=== PATIENT | female | born 1950 | race Caucasian/White ===

== ENCOUNTER → 2021-11-04 | Outpatient (CLI) | payer MEDICARE, OTHER | LOC: M.MRI 08:13 | PROVIDERS: ATTEND Orthopaedic Surgery | DX: S83.281A Other tear of lateral meniscus, current injury, right knee, initial encounter (principal); M17.11 Unilateral primary osteoarthritis, right knee; M71.21 Synovial cyst of popliteal space [Baker], right knee; M25.461 Effusion, right knee; X58.XXXA Exposure to other specified factors, initial encounter; Y93.89 Activity, other specified; Y92.89 Other specified places as the place of occurrence of the external cause; Y99.8 Other external cause status ==

== ENCOUNTER → 2021-11-19 | Outpatient (CLI) | payer MEDICARE, OTHER ==
[~2021-11-19] MED LIST: ACETAMINOPHEN500 M1 PO; CENTRUM SILVER1 EAC6 PO; FLEXERIL PO; LOSARTAN-HCTZ1 EAC3 PO; MELOXICAM15 MG PO; NORVASC10 MG PO; PROPRANOLOL 4040 M1 PO; PROTONIX40 M4 PO
[2021-11-19 10:07] LABS: ABSOLUTE BASOPHILS 0.1 thou/uL (0.0-0.2); ABSOLUTE EOSINOPHILS 0.2 thou/uL (0.0-0.7); ABSOLUTE MONOCYTES 0.8 thou/uL (0.0-1.2); ABSOLUTE NEUTROPHILS 7.4 thou/uL (1.6-8.1); EOSINOPHILS 2.2 %; HEMATOCRIT 37.9 % (37.0-47.0); LYMPHOCYTES 19.2 %; MCH 29.7 pg (26.0-34.0); MCHC 34.2 g/dL (28.0-37.0); MONOCYTES 7.4 %; MPV 7.5 fl. (7.2-11.1); NUCLEATED RBCS 0 /100WBC; PLATELET COUNT* 338 thou/uL (150-400); POLYS 70.2 %; RBC 4.36 mil/uL (4.20-5.00); RDW-CV 13.4 % (10.5-14.5); WBC 10.5 thou/uL (4.0-11.0)
[2021-11-19 10:18] LABS: URINE BILIRUBIN NEGATIVE (Negative); URINE BLOOD NEGATIVE (Negative); URINE CLARITY CLEAR; URINE COLOR YELLOW; URINE GLUCOSE-RANDOM NEGATIVE (Negative); URINE KETONES NEGATIVE (Negative); URINE LEUKOCYTES-REFLEX 1+ (Negative); URINE NITRITE-REFLEX NEGATIVE (Negative); URINE PROTEIN NEGATIVE (Negative); URINE UROBILINOGEN 0.2 E.U./dl (0.2-1.0)
[2021-11-19 10:20] LABS: ALBUMIN 3.9 g/dL (3.4-5.0); CALCIUM 9.9 mg/dL (8.5-10.1); CREATININE 1.3 mg/dL (0.6-1.3); POTASSIUM 4.9 mmol/L (3.5-5.1); TOTAL BILIRUBIN 0.3 mg/dL (<0.1-1.0); TOTAL PROTEIN 7.9 g/dL (6.4-8.2)
[2021-11-19 10:34] LABS: PROTIME 9.9 Seconds (9.20-11.50)
[2021-11-19 10:39] LABS: BACTERIA-REFLEX 1-9 Few /HPF (None Seen); CASTS None Seen /LPF (None Seen); CRYSTALS None Seen /LPF (None Seen); SQUAMOUS 4-10 Moderate /LPF (0-3); URINE RBC 0-2 Rare /HPF (0-2); URINE WBC-REFLEX 6-15 Few /HPF (0-5)
--- NOTE | 2021-11-19 14:02 | EKG ---
[place] [address] ELECTROCARDIOGRAM REPORT Name: RODRIGESANEESH Room: [facility]#: [id number] Admission: 11/19/21 Attend Phys: Bonifacio Stoner, Discharge: Date of : 52 Date of Service: 11/19/21 0951 Report #: [id number] THIS REPORT FOR: //name// [facility] Test Date: 2021-11-19 Test Time: 09:51:30 Pat Name: ANEESH RODRIGES Department: Room: Gender: Court Bailiff Or Sheriff: Tiffany IVY RN : 1950 Requested By: Bonifacio Stoner Order Number: [id number] Irene MD: Pato Toussaint Measurements Intervals Vendor Rate: 53 P: 69 LA: 173 QRS: 15 QRSD: 88 T: 36 QT: 419 QTc: 394 Interpretive Statements Sinus bradycardia Baseline wander in lead(s) II,III,aVF Compared to ECG 12/18/2008 10:29:28 Sinus bradycardia still present Electronically Signed On 11-19-2021 14:02:47 ONCOLOGY NURSE NAVIGATOR by Pato Toussaint [email or web address] <ELECTRONICALLY SIGNED> By: Pato Toussaint MD, [facility] 11/19/21 1402 0951 0951 Pato Toussaint MD, [facility] /EPI
== END ==
LOC: M.LAB 05:13
PROVIDERS: ATTEND Orthopaedic Surgery
DX: Z01.818 Encounter for other preprocedural examination (principal); Z01.812 Encounter for preprocedural laboratory examination; R00.1 Bradycardia, unspecified; M17.11 Unilateral primary osteoarthritis, right knee

== ENCOUNTER → 2021-11-24 | Outpatient (CLI) | payer MEDICARE, OTHER | LOC: M.LAB 11:35 | PROVIDERS: ATTEND Orthopaedic Surgery | DX: Z01.812 Encounter for preprocedural laboratory examination (principal); Z20.822 Contact with and (suspected) exposure to COVID-19 ==